=== PATIENT | male | born 1950 | race Caucasian/White ===

== ENCOUNTER → 2018-11-20 | Outpatient (CLI) | payer OTHER | END | disposition home or self-care (01) | LOC: PCVCCLINIC 15:51 | PROVIDERS: ATTEND Internal Medicine Cardiovascular Disease | DX: I25.10 Atherosclerotic heart disease of native coronary artery without angina pectoris (principal); I10 Essential (primary) hypertension; E78.00 Pure hypercholesterolemia, unspecified; R00.1 Bradycardia, unspecified; M19.90 Unspecified osteoarthritis, unspecified site; Z87.891 Personal history of nicotine dependence | CPT/HCPCS: 93005; G0463 ==

== ENCOUNTER → 2018-11-21 | Outpatient (CLI) | payer OTHER ==
--- NOTE | 2018-11-21 10:46 | PCVCIMAG ---
APPROVED REPORT Study performed: 11/21/2018 09:49:09 Exam: Stress Echocardiogram Indication: CAD s/p PCI LAD stent, HTN, HLP, bradycardia Patient Location: Echo lab Stress Nurse: Gaby Sun RN Status: routine Ht: 5 ft 10 in HR: 57 bpm BP: 130/80 mmHg Rhythm: Bradycardia Procedure The patient underwent an Exercise Stress Test using the Kiko Protocol. Blood pressure, heart rate, and EKG were monitored. An Echocardiogram was performed by fitness technician in four stages in quad fashion. At peak stress, four selected images were obtained and placed side by side with resting images for comparison. Stress Test Details Stress Test: Exercise stress testing was performed using a Kiko protocol. HR Resting HR: 57 bpmMax Heart Rate (APMHR): 152 bpm Max HR Achieved: 142 bpmTarget HR (85% APMHR): 129 bpm % of APMHR: 93 Recovery HR: 82 bpm HR response to stress: Normal HR response to stress BP Resting BP: 130/80 mmHg Max BP: 188/70 mmHg Recovery BP: 160/80 mmHg BP response to stress: Normal blood pressure response to stress. ECG Resting ECG: Sinus Rhythm Stress ECG: Sinus Rhythm ST Change: Non-ischemic Arrhythmia: None Recovery ECG: Sinus Rhythm Recovery ST Change: Normal Recovery Arrhythmia: PVCs Clinical Reason for Termination: Maximal effort Stress Symptoms: Dyspnea Exercise duration: 12 min sec Highest Stage Achieved: Stage 5: 5.0 mph at 18% grade. Exercise capacity: 13.7 METs Overall Exercise Capacity for Age: Normal Scale: Active Angina Score: None Pre-Stress Echo The resting Echocardiogram showed normal left ventricular contractility with an estimated Ejection Fraction of about >55%. The resting Echocardiogram demonstrated wall motion abnormality in the apical anterior wall. Post-Stress Echo The stress Echocardiogram showed normal left ventricular contractility with an estimated Ejection Fraction of about 65%. Normal augmentation of wall motion in all segments on post stress images. Clinical No clinical or ECG evidence for ischemia. Conclusion Clinical Response: Non-ischemic Exercise Capacity: Superior Stress ECG Response: Non-ischemic Stress Echo Images: Non-ischemic The left ventricle is normal in size and wall thickness in both the rest and stress images. Other Information Study Quality: Adequate <Conclusion> The left ventricle is normal in size and wall thickness in both the rest and stress images.
== END | disposition home or self-care (01) ==
LOC: PCVCIMAG 10:00
PROVIDERS: ATTEND Internal Medicine Cardiovascular Disease
DX: I25.10 Atherosclerotic heart disease of native coronary artery without angina pectoris (principal); I15.9 Secondary hypertension, unspecified; R00.1 Bradycardia, unspecified; Z95.9 Presence of cardiac and vascular implant and graft, unspecified
CPT/HCPCS: 93325; 93351

== ENCOUNTER → 2019-02-14 | Outpatient (CLI) | payer OTHER ==
--- NOTE | 2019-02-14 09:32 | PCVCIMAG ---
APPROVED REPORT Indications Stenosis Doppler Spectral Velocity Analysis PSV / EDVPSV / EDV ECA (R) 70 / 6 cm/sECA (L) 86 / 13 cm/s dICA (R) 55 / 17 cm/sdICA (L) 57 / 20 cm/s Johann (R) 61 / 20 cm/smICA (L) 66 / 25 cm/s pICA (R) 52 / 13 cm/spICA (L) 38 / 11 cm/s Bulb (R) 60 / 12 cm/sBulb (L) 56 / 13 cm/s dCCA (R) 68 / 14 cm/sdCCA (L) 82 / 19 cm/s mCCA (R) 87 / 16 cm/smCCA (L) 97 / 19 cm/s Vert (R) 32 / 5 cm/sVert (L) 42 / 12 cm/s ICA/CCA 0.90ICA/CCA 0.80 Findings The right carotid bulb has minimal plaque. The right proximal internal carotid artery shows no significant stenosis. The right common carotid artery shows no significant stenosis. The right external carotid artery shows no significant stenosis. The left carotid bulb has minimal plaque. The left proximal internal carotid artery shows no significant stenosis. The left common carotid artery shows no significant stenosis. The left external carotid artery shows no significant stenosis. Conclusion 1. Minimal bilateral plaquing without significant stenosis 2. Antegrade vertebral flow
== END | disposition home or self-care (01) ==
LOC: PCVCIMAG 08:57
PROVIDERS: ATTEND Internal Medicine Cardiovascular Disease
DX: I65.23 Occlusion and stenosis of bilateral carotid arteries (principal); R09.89 Other specified symptoms and signs involving the circulatory and respiratory systems
CPT/HCPCS: 93880